=== PATIENT | female | born 1990 | race Caucasian/White ===

== ENCOUNTER 2021-06-12 09:47 | Emergency (ER) | payer OTHER, MEDICAID ==
[~2021-06-12] VITALS: Ht 160 cm; Wt 72.6 kg
[2021-06-12] MEDS ORDERED: XANAX 0.25 MG0.25 MG PO (09:58)
[2021-06-12] MEDS ORDERED: ADDERALL 10 MG10 MG PO (09:58)
[2021-06-12] MEDS ORDERED: SEROQUEL 100 M100 M1 PO (09:58)
[2021-06-12] MEDS ORDERED: ABILIFY10 MG PO (09:58)
[2021-06-12] MEDS ORDERED: WELLBUTRIN 100100 MG PO (09:58)
[2021-06-12] MEDS ORDERED: GABAPENTIN100 MG PO (09:58)
[2021-06-12] MEDS ORDERED: ZOFRAN ODT4 MG DISSOLVE (10:32)
[2021-06-12] MEDS ORDERED: BENTYL 10 MG CA10 M1 PO (10:32)
[2021-06-12 10:38] VITALS: BP 140/93
== END 2021-06-12 10:38 | disposition home or self-care (01) ==
LOC: M.ERS 09:47
DX: R10.84 Generalized abdominal pain (principal); F41.9 Anxiety disorder, unspecified; F32.9 Major depressive disorder, single episode, unspecified; F90.9 Attention-deficit hyperactivity disorder, unspecified type; Z79.899 Other long term (current) drug therapy; Z88.0 Allergy status to penicillin